=== PATIENT | female | born 1940 | race Caucasian/White ===

== ENCOUNTER 2021-07-05 17:07 | Inpatient (IN) | payer OTHER, MEDICARE ==
[2021-07-05] MEDS ORDERED: Cyclobenzaprine 10 MG TAB PO PRN (18:51)
[2021-07-05] MEDS ORDERED: traMADol HCl 50 MG TAB PO PRN (18:51)
[2021-07-05] MEDS ORDERED: Ondansetron PF 4 MG/2 ML Vial IVP PRN (18:53)
[2021-07-05] MEDS ORDERED: Promethazine HCl 25 MG/ML VIAL IM PRN (18:53)
[2021-07-05] MEDS ORDERED: Dextrose 50% Abboject 50 ML SYRINGE SLOW IVP PRN (18:53)
[2021-07-05] MEDS ORDERED: Dextrose 5% in Water 1,000 ML IV PRN (18:53)
[2021-07-05] MEDS ORDERED: Insulin Regular 300 UNITS/3 ML VIAL SC PRN (18:53)
[2021-07-05] MEDS ORDERED: Rib Fracture Protocol IV SCH (19:00)
[2021-07-05 19:15] LABS: #Basophils 0.1 thou/uL (0.0-0.2); #Eosinphils 0.2 thou/uL (0.0-0.7); #Lymphocytes 1.1 thou/uL (1.20-3.40); #Monocytes 0.9 thou/uL (0.11-0.59); #Neutrophils 10.3 thou/uL (1.40-6.50); %Basophils 0.4 % (0.0-1.0); %Eosinophils 1.6 % (0.0-10.0); %Monocytes 6.9 % (0.0-10.0); %Neutrophils 82.1 % (42.0-75.0); Hemoglobin 11.6 g/dL (12.0-16.0); Mean Corpuscular HGB CONC 31.5 g/dL (32.0-36.0); Mean Corpuscular Hemoglobin 24.8 pg (27.0-31.0); Mean Corpuscular Volume 78.6 fL (78.0-98.0); Mean Platelet Volume 9.1 fL (7.4-10.4); Platelet Count 215 thou/uL (130-400); RBC Distribution Width 16.8 % (11.5-14.5); Red Blood Cell (RBC) Count 4.69 mill/uL (4.20-5.40); White Blood Cell (WBC) Count 12.6 thou/uL (4.8-10.8)
[2021-07-05] MEDS ORDERED: Ibuprofen 200 MG TAB PO PRN (19:15)
[2021-07-05 19:25] LABS: PTT 39.7 sec (22.9-36.1)
[2021-07-05 19:38] LABS: Anion Gap 13 mmol/L (10-20); BUN (Urea Nitrogen) 12 mg/dL (9.8-20.1); Calc. Creatinine Clearance 0 mL/min (70-130); Calcium 9.3 mg/dL (7.8-10.44); Carbon Dioxide 24 mmol/L (23-31); Chloride 103 mmol/L (98-107); Glucose 147 mg/dL (83-110); Magnesium 1.6 mg/dL (1.6-2.6); Phosphorus 3.3 mg/dL (2.3-4.7); Potassium 4.1 mmol/L (3.5-5.1); Sodium 136 mmol/L (136-145)
[2021-07-05 20:43] VITALS: BMI 26.7
[2021-07-05] MEDS: Acetaminophen 500 MG TAB PO SCH (20:58)
[2021-07-05] MEDS: Famotidine 20 MG TAB PO SCH (20:59)
[2021-07-05] MEDS ORDERED: Gabapentin 300 MG CAP PO SCH (21:00)
[2021-07-05] MEDS ORDERED: Famotidine/PF 20 mg/2ml Vial SLOW IVP SCH (21:00)
[2021-07-05] MEDS: Morphine 2 MG/ML VIAL SLOW IVP PRN (21:00)
[2021-07-05] MEDS ORDERED: Magnesium Sulfate 3 GM in Sodium Chloride 0.9% 250 ML 250 ML IVPB SCH (23:00)
[2021-07-05] MEDS ORDERED: Ketorolac Tromethamine 30 MG/ML VIAL IVP SCH (23:59)
[2021-07-06] MEDS: traMADol HCl 50 MG TAB PO SCH ×6 (00:06→23:54)
[2021-07-06] MEDS: Acetaminophen 500 MG TAB PO SCH ×4 (02:50→20:14)
[2021-07-06 05:45] LABS: #Basophils 0.1 thou/uL (0.0-0.2); #Eosinphils 0.2 thou/uL (0.0-0.7); #Lymphocytes 1.4 thou/uL (1.20-3.40); #Neutrophils 7.2 thou/uL (1.40-6.50); %Basophils 0.6 % (0.0-1.0); %Eosinophils 2.3 % (0.0-10.0); %Monocytes 10.4 % (0.0-10.0); %Neutrophils 72.7 % (42.0-75.0); Hemoglobin 10.5 g/dL (12.0-16.0); Mean Corpuscular HGB CONC 30.8 g/dL (32.0-36.0); Mean Corpuscular Hemoglobin 24.2 pg (27.0-31.0); Mean Corpuscular Volume 78.5 fL (78.0-98.0); Mean Platelet Volume 10.5 fL (7.4-10.4); Platelet Count 143 thou/uL (130-400); RBC Distribution Width 16.7 % (11.5-14.5); Red Blood Cell (RBC) Count 4.35 mill/uL (4.20-5.40); White Blood Cell (WBC) Count 9.6 thou/uL (4.8-10.8)
[2021-07-06 05:58] LABS: Phosphorus 3.3 mg/dL (2.3-4.7)
[2021-07-06 06:01] LABS: Anion Gap 9 mmol/L (10-20); BUN (Urea Nitrogen) 10 mg/dL (9.8-20.1); Calc. Creatinine Clearance 87 mL/min (70-130); Calcium 8.7 mg/dL (7.8-10.44); Carbon Dioxide 25 mmol/L (23-31); Chloride 108 mmol/L (98-107); Glucose 92 mg/dL (83-110); Magnesium 2.5 mg/dL (1.6-2.6); Potassium 4.4 mmol/L (3.5-5.1); Sodium 138 mmol/L (136-145)
[2021-07-06] MEDS ORDERED: PHOS-NAK 1 PKT PACK PO SCH (07:45)
[2021-07-06] MEDS: Gabapentin 100 MG CAP PO SCH ×2 (09:37→14:17)
[2021-07-06] MEDS: Famotidine 20 MG TAB PO SCH ×2 (09:38→20:18)
[2021-07-06] MEDS: HYDROcodone/Acetaminophen 10/325 mg Tablet PO SCH ×2 (09:38→20:17)
[2021-07-06] MEDS: Ezetimibe 10 MG TAB PO SCH (09:38)
[2021-07-06] MEDS: Lisinopril 20 MG TAB PO SCH (09:38)
[2021-07-06] MEDS: FLUoxetine HCl 20 MG CAP PO SCH ×2 (09:38→20:16)
[2021-07-06] MEDS: Pregabalin 50 MG CAP PO SCH ×2 (09:38→20:17)
[2021-07-06 13:56] LABS: SARS-CoV-2 PCR by NAA Not Detected (NotDetected)
[2021-07-06] MEDS ORDERED: Insulin Regular 300 UNITS/3 ML VIAL SC PRN (15:41)
[2021-07-06] MEDS ORDERED: Gabapentin 100 MG CAP PO SCH ×2 (15:45→21:00)
[2021-07-06] MEDS: Amitriptyline HCl 10 MG TAB PO SCH (20:15)
[2021-07-06] MEDS: Senokot 8.6 MG TAB PO SCH (20:18)
[2021-07-06] MEDS: Polyethylene Glycol 3350 17 GM Packet PO SCH (20:19)
[2021-07-06] MEDS: Morphine 2 MG/ML VIAL SLOW IVP PRN (20:19)
[2021-07-06] MEDS: Ibuprofen 200 MG TAB PO SCH (22:54)
[2021-07-07] MEDS: Ibuprofen 200 MG TAB PO SCH ×4 (01:39→21:24)
[2021-07-07] MEDS: traMADol HCl 50 MG TAB PO SCH ×2 (01:41→06:47)
[2021-07-07] MEDS: Acetaminophen 500 MG TAB PO SCH ×4 (03:17→20:26)
[2021-07-07 08:26] LABS: #Eosinphils 0.3 thou/uL (0.0-0.7); #Lymphocytes 1.2 thou/uL (1.20-3.40); #Monocytes 0.6 thou/uL (0.11-0.59); #Neutrophils 4.9 thou/uL (1.40-6.50); %Basophils 0.7 % (0.0-1.0); %Eosinophils 4.5 % (0.0-10.0); %Lymphocytes 16.5 % (21.0-51.0); %Monocytes 8.5 % (0.0-10.0); %Neutrophils 69.9 % (42.0-75.0); Hemoglobin 10.5 g/dL (12.0-16.0); Mean Corpuscular HGB CONC 30.3 g/dL (32.0-36.0); Mean Corpuscular Hemoglobin 24.2 pg (27.0-31.0); Mean Corpuscular Volume 79.7 fL (78.0-98.0); Mean Platelet Volume 8.8 fL (7.4-10.4); Platelet Count 204 thou/uL (130-400); RBC Distribution Width 16.8 % (11.5-14.5); Red Blood Cell (RBC) Count 4.33 mill/uL (4.20-5.40); White Blood Cell (WBC) Count 7.1 thou/uL (4.8-10.8)
[2021-07-07] MEDS ORDERED: HYDROcodone/Acetaminophen 10/325 mg Tablet PO PRN (08:48)
[2021-07-07 08:51] LABS: Anion Gap 11 mmol/L (10-20); BUN (Urea Nitrogen) 12 mg/dL (9.8-20.1); Calc. Creatinine Clearance 77 mL/min (70-130); Calcium 9.4 mg/dL (7.8-10.44); Carbon Dioxide 28 mmol/L (23-31); Chloride 102 mmol/L (98-107); Glucose 91 mg/dL (83-110); Magnesium 1.7 mg/dL (1.6-2.6); Phosphorus 4.3 mg/dL (2.3-4.7); Sodium 137 mmol/L (136-145)
[2021-07-07] MEDS ORDERED: Magnesium 2 GM/50 ML 2 GM in Premix Bag 1 BAG IVPB SCH (09:30)
[2021-07-07] MEDS: Polyethylene Glycol 3350 17 GM Packet PO SCH ×2 (09:44→21:21)
[2021-07-07] MEDS: Ezetimibe 10 MG TAB PO SCH (09:44)
[2021-07-07] MEDS: Famotidine 20 MG TAB PO SCH ×2 (09:44→21:24)
[2021-07-07] MEDS: Senokot 8.6 MG TAB PO SCH ×2 (09:44→21:29)
[2021-07-07] MEDS: HYDROcodone/Acetaminophen 10/325 mg Tablet PO SCH ×2 (09:45→21:28)
[2021-07-07] MEDS: Lisinopril 20 MG TAB PO SCH (09:45)
[2021-07-07] MEDS: FLUoxetine HCl 20 MG CAP PO SCH ×2 (09:45→21:24)
[2021-07-07] MEDS: Pregabalin 50 MG CAP PO SCH ×2 (09:45→21:27)
[2021-07-07] MEDS: Enoxaparin Sodium 30 MG/0.3 ML SYRINGE SC SCH ×2 (09:46→21:31)
[2021-07-07] MEDS: cloNIDine 0.1 MG TAB PO SCH ×2 (12:48→21:26)
[2021-07-07] MEDS ORDERED: hydrALAZINE 20 MG/ML VIAL SLOW IVP PRN (15:33)
[2021-07-07] MEDS: Amitriptyline HCl 10 MG TAB PO SCH (21:21)
[2021-07-07] MEDS ORDERED: Fluticasone Propionate Nasal Spray 16 gm Bottle NASAL SCH (22:00)
[2021-07-08] MEDS: Acetaminophen 500 MG TAB PO SCH ×3 (02:08→14:32)
[2021-07-08] MEDS: Morphine 2 MG/ML VIAL SLOW IVP PRN (02:09)
[2021-07-08] MEDS: cloNIDine 0.1 MG TAB PO SCH ×2 (05:02→14:32)
[2021-07-08] MEDS: Ibuprofen 200 MG TAB PO SCH ×2 (05:03→14:31)
[2021-07-08] MEDS: Ezetimibe 10 MG TAB PO SCH (08:13)
[2021-07-08] MEDS: Enoxaparin Sodium 30 MG/0.3 ML SYRINGE SC SCH (08:13)
[2021-07-08] MEDS: Polyethylene Glycol 3350 17 GM Packet PO SCH (08:13)
[2021-07-08] MEDS: HYDROcodone/Acetaminophen 10/325 mg Tablet PO SCH (08:14)
[2021-07-08] MEDS: FLUoxetine HCl 20 MG CAP PO SCH (08:14)
[2021-07-08] MEDS: Famotidine 20 MG TAB PO SCH (08:14)
[2021-07-08] MEDS: Lisinopril 20 MG TAB PO SCH (08:14)
[2021-07-08] MEDS: Senokot 8.6 MG TAB PO SCH (08:17)
[2021-07-08] MEDS: Pregabalin 50 MG CAP PO SCH (08:17)
[2021-07-08 12:28] VITALS: TEMP 97.6
[2021-07-08 14:45] VITALS: BP 187/77
[2021-07-11] MEDS ORDERED: Ibuprofen 200 MG TAB PO PRN (06:00)
== END 2021-07-08 15:25 | disposition home or self-care (01) | DRG 184 ==
LOC: SURG A 18:29 → OBSVTOIN 07-07 13:43
PROVIDERS: ADMIT Specialist; ATTEND Specialist
DX: S22.41XA Multiple fractures of ribs, right side, initial encounter for closed fracture (principal); F33.9 Major depressive disorder, recurrent, unspecified; Z20.822 Contact with and (suspected) exposure to COVID-19; W01.190A Fall on same level from slipping, tripping and stumbling with subsequent striking against furniture, initial encounter; J44.9 Chronic obstructive pulmonary disease, unspecified; F41.9 Anxiety disorder, unspecified; I10 Essential (primary) hypertension; F17.210 Nicotine dependence, cigarettes, uncomplicated; E11.9 Type 2 diabetes mellitus without complications; K59.00 Constipation, unspecified; Z99.81 Dependence on supplemental oxygen; Y92.096 Garden or yard of other non-institutional residence as the place of occurrence of the external cause; Z79.899 Other long term (current) drug therapy; Z79.84 Long term (current) use of oral hypoglycemic drugs; Z90.49 Acquired absence of other specified parts of digestive tract
CPT/HCPCS: 36415; 36416; 71045; 80048; 83735; 84100; 85025; 85610; 85730; 96372; 96374; 96375; 96376; G0378; J1650; J1815; J2270; J3475; J7050; J7620; U0003; U0005